=== PATIENT | female | born 1980 | race Caucasian/White ===

== ENCOUNTER → 2024-05-16 07:57 | Outpatient (CLI) | payer OTHER, SELFPAY ==
--- NOTE | 2024-05-16 07:59 | DI.US.S_ITS ---
PROCEDURE: US THYROID INDICATIONS: MULTIPLE THYROID NODULES / GLOBUS SENSATION TECHNIQUE: Real-time scanning was performed of the thyroid gland, with image documentation. COMPARISON: None. FINDINGS: Thyroid: Right lobe measures 5.5 x 1.8 x 1.8 cm. Left lobe measures 4.2 x 1.3 x 1.0 cm. Isthmus is 0.3 cm thick. Echotexture is homogeneous. Nodule number: 1 Location: Right mid Size: 1.0 x 1.0 x 0.6 cm. Composition: Solid Echogenicity: Hypoechoic Shape: wider than tall. Margins: Smooth Echogenic foci: None Total points: 4 ACR TI-RADS category: 4, Moderately suspicious Cystic nodule measuring 7 mm in the right thyroid lobe. IMPRESSION: Thyroid nodules as described above. Recommend 1 year follow-up ultrasound. ACR TI-RADS definitions and recommendations: TI-RADS 1 (benign): 0 points. FNA not needed. TI-RADS 2 (not suspicious): 2 points. FNA not needed. TI-RADS 3: 3 points. * FNA if 2.5 cm or larger, follow up if 1.5 cm or larger (at 1, 3, and 5 years). TI-RADS 4: 4-6 points. * FNA if 1.5 cm or larger, follow up if 1 cm or larger (at 1, 2, 3, and 5 years). TI-RADS 5: 7 points or more. * FNA if 1 cm or larger, follow up if 0.5 cm or larger (every year for 5 years). Dictated by: Yan Castro M.D. on 05/16/2024 at 15:09 Approved by: Yan Castro M.D. on 05/16/2024 at 15:11
== END ==
PROVIDERS: PCP Family Medicine; Referring Provider Family Medicine; Visit Provider Family Medicine
DX: E04.2 Nontoxic multinodular goiter (principal); R09.A2 Foreign body sensation, throat
CPT/HCPCS: 76536